=== PATIENT | female | born 1955 | race Caucasian/White ===

== ENCOUNTER → 2016-10-20 | Outpatient (CLI) | payer MEDICARE ==
[~2016-10-20] MED LIST: ACYC-57 PO; ALBU8.5H5 INH; AMLO5TAB2 PO; ASCO500T8 PO; ASPI-496 PO; ASPI325T4 PO; ATEN25TA PO; ATEN50TA41 PO; CEPH-368 PO; CEPH-376 PO; CHOL10002 PO; CHOL10003 PO; CHOL2000 PO; CHOL20003 PO; CLON0.1T12 PO; DIAZ5TAB PO; DIAZ5TAB4 PO; DULO30CA2 PO; DULO60CA7 PO; ENAL20TA68 PO; FISH1CAP PO; FURO20TA3 PO; FURO40TA6 PO; GABA-827 PO; GABA600T2 PO; GLUC1500; HCTZ PO; HYDR2TAB13 PO; HYDR2TAB40 PO; HYDR4TAB16 PO; INSU100C SQ-INSULIN; INSU100V8 SQ; IRBE300T16 PO; LISI-167 PO; LOVA10TA PO; LOVA20TA2 PO; MAGN300C PO; MAGN400T26 PO; METF-86 PO; METF100010 PO; METF10002 PO; METH-356 PO; METH5TAB2 PO; METH750T2 PO; MILK200C2 PO; MULT-516 PO; ONDA4TAB10 PO; OXYC10TA32 PO; OXYC20TA2 PO; OXYC20TA42 PO; POLY17PO5 PO; POT25TAB PO; POTA20TA89 PO; POTASSIUM PO; PRED10TA PO; SENN1TAB7 PO; VALA1000 PO; WARF2TAB7 PO
== END | disposition home or self-care (01) ==
LOC: RAD 15:03
PROVIDERS: ATTEND Family Medicine
DX: N27.0 Small kidney, unilateral (principal); K83.8 Other specified diseases of biliary tract; R94.5 Abnormal results of liver function studies; Z90.49 Acquired absence of other specified parts of digestive tract
CPT/HCPCS: 36415; 76700; 80076; 82105; 82728; 83540; 83550; 83690; 87522

== ENCOUNTER 2018-05-25 11:33 | Inpatient (IN) | payer MEDICARE ==
[~2018-05-25] VITALS: Ht 152.4 cm; Wt 89.4 kg
[~2018-05-25 11:33] MED LIST changes: +AMLO-150 PO; -AMLO5TAB2 PO; +ASPI325T17 PO; -ASPI325T4 PO; -CHOL20003 PO; -GABA600T2 PO; +GABA600T7 PO; -GLUC1500; +GLUC15006; -HYDR2TAB13 PO; +HYDR2TAB29 PO; -HYDR4TAB16 PO; +HYDR4TAB48 PO; +METF-162 PO; -METF-86 PO; -METH-356 PO; +METH10TA2 PO; -OXYC10TA32 PO; +OXYC10TA47 PO; -SENN1TAB7 PO; +SENN1TAB8 PO; -WARF2TAB7 PO; +WARF2TAB99 PO
--- NOTE | 2018-05-25 11:42 | NUR ---
triage: attempted to call pt for triage, no answer
[2018-05-25 12:20] LABS: BASOPHILS # (AUTO) 0.01 x10^3/uL (0-0.1); BASOPHILS % (AUTO) 0 % (0-1); EOSINOPHILS # (AUTO) 0.11 x10^3/uL (0-0.4); EOSINOPHILS % (AUTO) 2 % (1-7); LYMPHOCYTES # (AUTO) 1.54 x10^3/uL (1-3.4); LYMPHOCYTES % (AUTO) 26 % (22-44); MD NO; MEAN CORPUSCULAR HEMOGLOBIN 32.1 pg (27.0-34.8); MEAN CORPUSCULAR HGB CONC 34.2 g/dL (32.4-35.8); MEAN PLATELET VOLUME 7.3 fL (7.4-10.4); MONOCYTES # (AUTO) 0.19 x10^3/uL (0.2-0.8); MONOCYTES % (AUTO) 3 % (2-9); NEUTROPHILS # (AUTO) 4.01 x10^3/uL (1.8-6.8); NEUTROPHILS % (AUTO) 68 % (42-75); PLATELET COUNT 283 x10^3/uL (130-400); RED BLOOD COUNT 3.82 x10^6/uL (3.82-5.3); RED CELL DISTRIBUTION WIDTH 15.2 % (9.6-15.2)
[2018-05-25 12:21] LABS: HCT (SEDRATE) 36.2 % (34.6-47.8)
[2018-05-25] MEDS ORDERED: HYDROmorphone 2 MG/ML, 1ML IVPush PRN ×2 (12:30→19:00)
[2018-05-25 12:31] LABS: ALBUMIN 3.2 g/dL (3.4-5.0); ANION GAP 6 mmol/L (5-15); CALCIUM 9.3 mg/dL (8.5-10.1); CHLORIDE 108 mmol/L (98-107)
--- NOTE | 2018-05-25 12:37 | NUR ---
Pt presents to ED for pain, redness and swelling to L foot and 5th digit x 4 days. Low grade fever at home. CSM intact.
[2018-05-25 12:40] LABS: ALANINE AMINOTRANSFERASE 61 U/L (12-78); ALKALINE PHOSPHATASE 165 U/L (45-117); BILIRUBIN,TOTAL 0.3 mg/dL (0.2-1.0); CREATININE 1.17 mg/dL (0.55-1.02); TOTAL PROTEIN 7.9 g/dL (6.4-8.2)
[2018-05-25] MEDS ORDERED: HYDROmorphone 2 MG/ML, 1ML ONE ×2 (12:50→19:44)
[2018-05-25] MEDS ORDERED: DOXY20TA5 PO (12:58)
[2018-05-25] MEDS ORDERED: METH10TA2 PO (12:58)
[2018-05-25] MEDS ORDERED: ASPI325T17 PO (12:58)
[2018-05-25] MEDS ORDERED: FURO20TA3 PO (13:59)
[2018-05-25] MEDS ORDERED: GABA600T7 PO (13:59)
[2018-05-25] MEDS ORDERED: RIFA150C25 PO (14:06)
[2018-05-25] MEDS ORDERED: IRBE75TA10 PO (14:06)
[2018-05-25] MEDS ORDERED: OXYC10TA6 PO (14:06)
[2018-05-25] MEDS ORDERED: CLON0.1T22 PO (14:06)
--- NOTE | 2018-05-25 14:29 | NUR ---
Pt resting in bed. Pain controlled. Pt NAD. Pt placed on o2, 2L NC
[2018-05-25] MEDS ORDERED: COLCHICINE 0.6 MG TABLET PO ONE ×2 (15:30→17:30)
[2018-05-25] MEDS ORDERED: SODIUM CHLORIDE 0.9% 1,000 ML IV SCH (15:30)
[2018-05-25] MEDS ORDERED: GADOBUTROL 7.5 MMOL/7.5 ML PFS ONE (15:57)
[2018-05-25] MEDS: METHADONE 10 MG TABLET PO SCH (16:41)
[2018-05-25] MEDS: GABAPENTIN 400 MG CAPSULE PO SCH ×2 (16:42→21:26)
[2018-05-25 17:03] VITALS: BP 118/60
[2018-05-25] MEDS: OXYcodone IR 5MG TABLET PO SCH (18:16)
[2018-05-25] MEDS ORDERED: FENTANYL PF 100 MCG/2ML ONE ×2 (18:36→19:44)
[2018-05-25] MEDS ORDERED: FENTANYL PF 250 MCG/5ML ONE (18:49)
[2018-05-25] MEDS ORDERED: BUPIVACAINE/PF 0.25% ONE (18:56)
[2018-05-25] MEDS ORDERED: PROMETHAZINE 25 MG/ML, 1ML IV PRN (19:00)
[2018-05-25] MEDS ORDERED: ONDANSETRON ODT 8 MG PO PRN (19:00)
[2018-05-25] MEDS ORDERED: ONDANSETRON 2MG/ML, 2ML IV PRN (19:00)
[2018-05-25] MEDS ORDERED: MEPERIDINE/PF 25MG/0.5ML IVPush PRN (19:00)
[2018-05-25] MEDS ORDERED: ACETAMINOPHEN 325 MG TABLET PO PRN (19:00)
[2018-05-25] MEDS ORDERED: FENTANYL PF 100 MCG/2ML IV PRN (19:00)
[2018-05-25] MEDS ORDERED: DIAZEPAM 5 MG/ML, 2ML IVPush PRN (19:00)
[2018-05-25] MEDS ORDERED: DEXAMETHASONE 4 MG/ML, 1ML ONE (19:02)
[2018-05-25] MEDS ORDERED: CEFAZOLIN 1,000 MG ONE (19:02)
[2018-05-25] MEDS ORDERED: EPHEDRINE 50 MG/ML, 1ML ONE (19:02)
[2018-05-25] MEDS ORDERED: SUCCINYLCHOLINE 20 MG/ML, 10ML ONE (19:02)
[2018-05-25] MEDS ORDERED: ONDANSETRON 2MG/ML, 2ML ONE (19:02)
[2018-05-25] MEDS ORDERED: PROPOFOL 10 MG/ML, 20ML ONE (19:02)
[2018-05-25] MEDS ORDERED: BUPIVACAINE/PF 0.25% IM ONE (19:23)
[2018-05-25] MEDS ORDERED: OXYcodone 5 MG/5 ML ORAL.SOL UDC ONE (19:44)
[2018-05-25] MEDS: OXYcodone 5 MG/5 ML ORAL.SOL UDC PO PRN (20:13)
[2018-05-25 20:58] VITALS: BP 116/73
[2018-05-25] MEDS: LOVASTATIN 20 MG TABLET PO SCH (21:26)
[2018-05-25] MEDS: ATENOLOL 50 MG TABLET PO SCH (21:27)
[2018-05-25] MEDS: CEFAZOLIN PMX 2GM/50ML 50 ML IVPB SCH (21:42)
[2018-05-26 00:40] VITALS: BP 116/72
[2018-05-26] MEDS: METHADONE 10 MG TABLET PO SCH ×4 (01:50→21:10)
[2018-05-26] MEDS: OXYcodone IR 5MG TABLET PO SCH ×4 (01:51→21:10)
[2018-05-26 05:22] LABS: ANION GAP 7 mmol/L (5-15); CALCIUM 8.3 mg/dL (8.5-10.1); CHLORIDE 104 mmol/L (98-107); CREATININE 1.15 mg/dL (0.55-1.02)
[2018-05-26] MEDS: CEFAZOLIN PMX 2GM/50ML 50 ML IVPB SCH (05:42)
[2018-05-26 06:05] LABS: BASOPHILS % (AUTO) 0 % (0-1); EOSINOPHILS # (AUTO) 0.09 x10^3/uL (0-0.4); EOSINOPHILS % (AUTO) 2 % (1-7); LYMPHOCYTES # (AUTO) 0.38 x10^3/uL (1-3.4); LYMPHOCYTES % (AUTO) 7 % (22-44); MD NO; MEAN CORPUSCULAR HEMOGLOBIN 31.8 pg (27.0-34.8); MEAN CORPUSCULAR HGB CONC 33.7 g/dL (32.4-35.8); MEAN CORPUSCULAR VOLUME 94.2 fL (80-100); MEAN PLATELET VOLUME 7.3 fL (7.4-10.4); MONOCYTES # (AUTO) 0.05 x10^3/uL (0.2-0.8); MONOCYTES % (AUTO) 1 % (2-9); NEUTROPHILS # (AUTO) 4.81 x10^3/uL (1.8-6.8); NEUTROPHILS % (AUTO) 90 % (42-75); PLATELET COUNT 254 x10^3/uL (130-400); RED BLOOD COUNT 3.34 x10^6/uL (3.82-5.3); RED CELL DISTRIBUTION WIDTH 14.9 % (9.6-15.2)
[2018-05-26 07:00] VITALS: BP 107/64
[2018-05-26] MEDS: AMPICILLIN/SULBACTAM 3 GM in SODIUM CHLORIDE 0.9% 100 ML IV SCH ×3 (08:25→20:08)
[2018-05-26] MEDS: INSULIN LISPRO 100 UNITS/ML, PEN SQ-INSULIN SCH ×4 (08:25→21:25)
[2018-05-26] MEDS: DULOXETINE 30 MG CAPSULE.DR PO SCH (08:27)
[2018-05-26] MEDS: GABAPENTIN 400 MG CAPSULE PO SCH ×3 (08:27→21:10)
[2018-05-26] MEDS: COLCHICINE 0.6 MG TABLET PO SCH ×2 (08:27→21:10)
[2018-05-26] MEDS: ATENOLOL 50 MG TABLET PO SCH ×2 (08:27→21:11)
[2018-05-26] MEDS: SODIUM CHLORIDE FLUSH 10ML SYR IVF SCH ×2 (08:28→21:00)
[2018-05-26] MEDS: DOXYCYCLINE 100 MG in DEXTROSE 5% 250 ML IV SCH ×2 (09:37→21:11)
[2018-05-26] MEDS: OXYcodone 5 MG/5 ML ORAL.SOL UDC PO PRN (12:48)
[2018-05-26 13:05] VITALS: BP 99/68
[2018-05-26] MEDS: LOVASTATIN 20 MG TABLET PO SCH (21:11)
[2018-05-26 21:12] VITALS: BP 110/67
[2018-05-27 00:29] VITALS: BP 134/73
[2018-05-27] MEDS: AMPICILLIN/SULBACTAM 3 GM in SODIUM CHLORIDE 0.9% 100 ML IV SCH ×4 (01:57→20:26)
[2018-05-27 06:21] LABS: BASOPHILS % (AUTO) 0 % (0-1); EOSINOPHILS # (AUTO) 0.13 x10^3/uL (0-0.4); EOSINOPHILS % (AUTO) 2 % (1-7); LYMPHOCYTES # (AUTO) 1.74 x10^3/uL (1-3.4); LYMPHOCYTES % (AUTO) 29 % (22-44); MD NO; MEAN CORPUSCULAR HEMOGLOBIN 32.2 pg (27.0-34.8); MEAN CORPUSCULAR HGB CONC 34.1 g/dL (32.4-35.8); MEAN CORPUSCULAR VOLUME 94.5 fL (80-100); MEAN PLATELET VOLUME 6.7 fL (7.4-10.4); MONOCYTES # (AUTO) 0.28 x10^3/uL (0.2-0.8); MONOCYTES % (AUTO) 5 % (2-9); NEUTROPHILS # (AUTO) 3.96 x10^3/uL (1.8-6.8); NEUTROPHILS % (AUTO) 65 % (42-75); PLATELET COUNT 270 x10^3/uL (130-400); RED BLOOD COUNT 3.06 x10^6/uL (3.82-5.3); RED CELL DISTRIBUTION WIDTH 15.5 % (9.6-15.2)
[2018-05-27 06:31] LABS: ANION GAP 7 mmol/L (5-15); CALCIUM 8.1 mg/dL (8.5-10.1); CHLORIDE 107 mmol/L (98-107)
[2018-05-27 06:32] LABS: CREATININE 1.07 mg/dL (0.55-1.02)
[2018-05-27] MEDS: INSULIN LISPRO 100 UNITS/ML, PEN SQ-INSULIN SCH ×4 (07:00→21:00)
[2018-05-27 08:00] VITALS: BP 112/67
[2018-05-27] MEDS: GABAPENTIN 400 MG CAPSULE PO SCH ×3 (08:22→22:46)
[2018-05-27] MEDS: OXYcodone IR 5MG TABLET PO SCH ×3 (08:22→22:46)
[2018-05-27] MEDS: COLCHICINE 0.6 MG TABLET PO SCH ×2 (08:22→20:36)
[2018-05-27] MEDS: METHADONE 10 MG TABLET PO SCH ×3 (08:22→22:46)
[2018-05-27] MEDS: SODIUM CHLORIDE FLUSH 10ML SYR IVF SCH ×2 (08:22→21:00)
[2018-05-27] MEDS: ATENOLOL 50 MG TABLET PO SCH ×2 (08:23→20:38)
[2018-05-27] MEDS: DULOXETINE 30 MG CAPSULE.DR PO SCH (08:23)
[2018-05-27] MEDS: DOXYCYCLINE 100 MG in DEXTROSE 5% 250 ML IV SCH ×2 (11:48→23:51)
[2018-05-27 13:10] VITALS: BP 138/66
[2018-05-27 18:36] VITALS: BP 156/71
[2018-05-27] MEDS: LOVASTATIN 20 MG TABLET PO SCH (20:38)
[2018-05-28] MEDS: AMPICILLIN/SULBACTAM 3 GM in SODIUM CHLORIDE 0.9% 100 ML IV SCH ×4 (02:24→20:29)
[2018-05-28 02:32] VITALS: BP 160/80
[2018-05-28 06:37] LABS: BASOPHILS # (AUTO) 0.01 x10^3/uL (0-0.1); BASOPHILS % (AUTO) 0 % (0-1); EOSINOPHILS # (AUTO) 0.17 x10^3/uL (0-0.4); EOSINOPHILS % (AUTO) 3 % (1-7); LYMPHOCYTES # (AUTO) 1.92 x10^3/uL (1-3.4); LYMPHOCYTES % (AUTO) 36 % (22-44); MD NO; MEAN CORPUSCULAR HEMOGLOBIN 32.2 pg (27.0-34.8); MEAN CORPUSCULAR HGB CONC 34.2 g/dL (32.4-35.8); MEAN CORPUSCULAR VOLUME 94.1 fL (80-100); MEAN PLATELET VOLUME 6.2 fL (7.4-10.4); MONOCYTES # (AUTO) 0.23 x10^3/uL (0.2-0.8); MONOCYTES % (AUTO) 4 % (2-9); NEUTROPHILS # (AUTO) 3.02 x10^3/uL (1.8-6.8); NEUTROPHILS % (AUTO) 57 % (42-75); PLATELET COUNT 296 x10^3/uL (130-400); RED BLOOD COUNT 3.39 x10^6/uL (3.82-5.3); RED CELL DISTRIBUTION WIDTH 14.9 % (9.6-15.2)
[2018-05-28 06:51] LABS: ANION GAP 6 mmol/L (5-15); CALCIUM 8.3 mg/dL (8.5-10.1); CHLORIDE 105 mmol/L (98-107); CREATININE 0.93 mg/dL (0.55-1.02)
[2018-05-28 07:00] VITALS: BP 137/68
[2018-05-28] MEDS ORDERED: PHARMACOKINETIC MONITORING MC PRN (07:00)
[2018-05-28] MEDS: INSULIN LISPRO 100 UNITS/ML, PEN SQ-INSULIN SCH ×4 (07:00→20:39)
[2018-05-28] MEDS ORDERED: PHARMACOKINETIC CONSULTATION MC ONE (07:00)
[2018-05-28] MEDS ORDERED: VANCOMYCIN PER PHARMACY MC PRN (07:00)
[2018-05-28] MEDS ORDERED: VANCOMYCIN 1,600 MG in SODIUM CHLORIDE 0.9% 250 ML IV SCH (08:00)
[2018-05-28] MEDS: ATENOLOL 50 MG TABLET PO SCH ×2 (08:08→20:31)
[2018-05-28] MEDS: GABAPENTIN 400 MG CAPSULE PO SCH ×3 (08:08→20:31)
[2018-05-28] MEDS: OXYcodone IR 5MG TABLET PO SCH ×3 (08:08→20:30)
[2018-05-28] MEDS: DULOXETINE 30 MG CAPSULE.DR PO SCH (08:08)
[2018-05-28] MEDS: METHADONE 10 MG TABLET PO SCH ×3 (08:08→20:31)
[2018-05-28] MEDS: COLCHICINE 0.6 MG TABLET PO SCH ×2 (08:08→20:31)
[2018-05-28] MEDS: SODIUM CHLORIDE FLUSH 10ML SYR IVF SCH ×2 (08:09→20:32)
[2018-05-28 13:23] VITALS: BP 153/81
[2018-05-28 18:33] VITALS: BP 156/87
[2018-05-28] MEDS: LOVASTATIN 20 MG TABLET PO SCH (20:30)
[2018-05-28 23:13] VITALS: BP 131/84
[2018-05-28] MEDS: OXYcodone 5 MG/5 ML ORAL.SOL UDC PO PRN (23:18)
[2018-05-29] MEDS: AMPICILLIN/SULBACTAM 3 GM in SODIUM CHLORIDE 0.9% 100 ML IV SCH ×4 (02:07→20:53)
[2018-05-29 02:17] VITALS: BP 161/81
[2018-05-29 06:40] VITALS: BP 157/84
[2018-05-29] MEDS: INSULIN LISPRO 100 UNITS/ML, PEN SQ-INSULIN SCH ×4 (07:00→21:00)
[2018-05-29] MEDS: COLCHICINE 0.6 MG TABLET PO SCH ×2 (08:21→20:58)
[2018-05-29] MEDS: DULOXETINE 30 MG CAPSULE.DR PO SCH (08:21)
[2018-05-29] MEDS: METHADONE 10 MG TABLET PO SCH ×3 (08:21→20:54)
[2018-05-29] MEDS: GABAPENTIN 400 MG CAPSULE PO SCH ×3 (08:21→20:55)
[2018-05-29] MEDS: OXYcodone IR 5MG TABLET PO SCH ×3 (08:21→20:54)
[2018-05-29] MEDS: ATENOLOL 50 MG TABLET PO SCH ×2 (08:22→20:55)
[2018-05-29] MEDS: SODIUM CHLORIDE FLUSH 10ML SYR IVF SCH ×2 (09:00→20:53)
[2018-05-29] MEDS ORDERED: AMOX1TAB64 PO ×2 (11:18)
[2018-05-29] MEDS: OXYcodone 5 MG/5 ML ORAL.SOL UDC PO PRN (11:33)
[2018-05-29 13:09] VITALS: BP 161/85
[2018-05-29] MEDS ORDERED: ACETAMINOPHEN 325 MG TABLET PO PRN (14:30)
[2018-05-29 19:11] VITALS: BP 152/93
[2018-05-29] MEDS: LOVASTATIN 20 MG TABLET PO SCH (20:54)
[2018-05-30] MEDS: OXYcodone 5 MG/5 ML ORAL.SOL UDC PO PRN ×4 (00:32→23:24)
[2018-05-30 00:41] VITALS: BP 143/73
[2018-05-30] MEDS: AMPICILLIN/SULBACTAM 3 GM in SODIUM CHLORIDE 0.9% 100 ML IV SCH ×4 (02:33→21:17)
[2018-05-30 06:41] VITALS: BP 158/80
[2018-05-30] MEDS: INSULIN LISPRO 100 UNITS/ML, PEN SQ-INSULIN SCH ×4 (07:00→21:00)
[2018-05-30] MEDS: DULOXETINE 30 MG CAPSULE.DR PO SCH (08:21)
[2018-05-30] MEDS: OXYcodone IR 5MG TABLET PO SCH ×3 (08:21→21:18)
[2018-05-30] MEDS: ATENOLOL 50 MG TABLET PO SCH ×2 (08:21→21:18)
[2018-05-30] MEDS: GABAPENTIN 400 MG CAPSULE PO SCH ×3 (08:21→21:18)
[2018-05-30] MEDS: METHADONE 10 MG TABLET PO SCH ×3 (08:22→21:19)
[2018-05-30] MEDS: SODIUM CHLORIDE FLUSH 10ML SYR IVF SCH ×2 (08:26→21:18)
[2018-05-30] MEDS: COLCHICINE 0.6 MG TABLET PO SCH ×2 (08:32→21:00)
[2018-05-30] MEDS: NICOTINE 14MG/24 HR PATCH.TD24 TD SCH ×2 (09:22→16:33)
[2018-05-30] MEDS ORDERED: FENTANYL PF 100 MCG/2ML ONE ×2 (12:24→13:18)
[2018-05-30] MEDS ORDERED: MIDAZOLAM 1 MG/ML, 2ML ONE (12:24)
[2018-05-30] MEDS ORDERED: PROPOFOL 10 MG/ML, 20ML ONE (12:27)
[2018-05-30] MEDS ORDERED: ONDANSETRON 2MG/ML, 2ML ONE (12:27)
[2018-05-30] MEDS ORDERED: ONDANSETRON 2MG/ML, 2ML IV PRN (13:00)
[2018-05-30] MEDS ORDERED: PROMETHAZINE 25 MG SUPP PR PRN (13:00)
[2018-05-30] MEDS ORDERED: EPHEDRINE 50 MG/ML, 1ML IVPush PRN (13:00)
[2018-05-30] MEDS ORDERED: PROMETHAZINE 25 MG/ML, 1ML IV PRN (13:00)
[2018-05-30] MEDS ORDERED: PROMETHAZINE 12.5 MG SUPP PR PRN (13:00)
[2018-05-30] MEDS ORDERED: OXYcodone 5 MG/5 ML ORAL.SOL UDC PO PRN (13:00)
[2018-05-30] MEDS ORDERED: MIDAZOLAM 1 MG/ML, 2ML IV PRN (13:00)
[2018-05-30] MEDS ORDERED: ONDANSETRON ODT 8 MG PO PRN (13:00)
[2018-05-30] MEDS ORDERED: DIPHENHYDRAMINE 50 MG/ML, 1ML IVPush PRN (13:00)
[2018-05-30] MEDS ORDERED: OXYcodone 5 MG/5 ML ORAL.SOL UDC ONE (13:18)
[2018-05-30] MEDS: FENTANYL PF 100 MCG/2ML IV PRN ×3 (13:20→13:50)
[2018-05-30 15:00] VITALS: BP 143/76
[2018-05-30 19:05] VITALS: BP 126/74
[2018-05-30] MEDS: LOVASTATIN 20 MG TABLET PO SCH (21:18)
[2018-05-31] MEDS: AMPICILLIN/SULBACTAM 3 GM in SODIUM CHLORIDE 0.9% 100 ML IV SCH ×4 (02:01→21:07)
[2018-05-31 02:10] VITALS: BP 123/77
[2018-05-31] MEDS: OXYcodone 5 MG/5 ML ORAL.SOL UDC PO PRN ×2 (04:11→13:44)
[2018-05-31] MEDS: INSULIN LISPRO 100 UNITS/ML, PEN SQ-INSULIN SCH ×4 (07:00→21:00)
[2018-05-31 07:31] VITALS: BP 148/82
[2018-05-31] MEDS: SODIUM CHLORIDE FLUSH 10ML SYR IVF SCH ×2 (08:56→21:08)
[2018-05-31] MEDS: DULOXETINE 30 MG CAPSULE.DR PO SCH (08:57)
[2018-05-31] MEDS: ATENOLOL 50 MG TABLET PO SCH ×2 (08:57→21:08)
[2018-05-31] MEDS: GABAPENTIN 400 MG CAPSULE PO SCH ×3 (08:57→21:08)
[2018-05-31] MEDS: COLCHICINE 0.6 MG TABLET PO SCH ×2 (09:00→21:00)
[2018-05-31] MEDS: METHADONE 10 MG TABLET PO SCH ×3 (09:01→21:09)
[2018-05-31] MEDS: OXYcodone IR 5MG TABLET PO SCH ×3 (09:01→21:08)
[2018-05-31 19:25] VITALS: BP 191/91
[2018-05-31] MEDS: LOVASTATIN 20 MG TABLET PO SCH (21:09)
[2018-05-31] MEDS: DOXYCYCLINE 100MG CAP PO SCH (21:37)
[2018-05-31 23:00] VITALS: BP 164/83
[2018-06-01] MEDS: AMPICILLIN/SULBACTAM 3 GM in SODIUM CHLORIDE 0.9% 100 ML IV SCH ×4 (02:36→20:34)
[2018-06-01 02:45] VITALS: BP 143/75
[2018-06-01 06:52] VITALS: BP 164/83
[2018-06-01] MEDS ORDERED: hydrALAzine 20 MG/ML, 1ML IV PRN (07:00)
[2018-06-01] MEDS: INSULIN LISPRO 100 UNITS/ML, PEN SQ-INSULIN SCH ×4 (07:00→20:27)
[2018-06-01 07:46] LABS: HEMOGLOBIN A1C 5.8 % (4.2-6.3)
[2018-06-01] MEDS: METHADONE 10 MG TABLET PO SCH ×3 (08:52→20:35)
[2018-06-01] MEDS: NICOTINE 14MG/24 HR PATCH.TD24 TD SCH (08:52)
[2018-06-01] MEDS: ATENOLOL 50 MG TABLET PO SCH ×2 (08:52→20:34)
[2018-06-01] MEDS: DOXYCYCLINE 100MG CAP PO SCH ×2 (08:53→20:34)
[2018-06-01] MEDS: OXYcodone IR 5MG TABLET PO SCH ×3 (08:53→20:35)
[2018-06-01] MEDS: GABAPENTIN 400 MG CAPSULE PO SCH ×3 (08:53→20:34)
[2018-06-01] MEDS: LISINOPRIL 20 MG TABLET PO SCH ×2 (08:53→20:45)
[2018-06-01] MEDS: FUROSEMIDE 20 MG TABLET PO SCH (08:53)
[2018-06-01] MEDS: COLCHICINE 0.6 MG TABLET PO SCH ×2 (08:54→20:35)
[2018-06-01] MEDS: DULOXETINE 30 MG CAPSULE.DR PO SCH (08:54)
[2018-06-01] MEDS: SODIUM CHLORIDE FLUSH 10ML SYR IVF SCH ×2 (08:54→20:34)
[2018-06-01] MEDS: OXYcodone 5 MG/5 ML ORAL.SOL UDC PO PRN ×2 (11:56→22:01)
[2018-06-01 14:10] VITALS: BP 124/79
[2018-06-01 19:21] VITALS: BP 154/70
[2018-06-01] MEDS: LOVASTATIN 20 MG TABLET PO SCH (20:34)
[2018-06-02] MEDS: AMPICILLIN/SULBACTAM 3 GM in SODIUM CHLORIDE 0.9% 100 ML IV SCH ×4 (01:51→19:59)
[2018-06-02 02:53] VITALS: BP 146/80
[2018-06-02] MEDS: INSULIN LISPRO 100 UNITS/ML, PEN SQ-INSULIN SCH ×4 (07:00→21:00)
[2018-06-02 07:45] LABS: BASOPHILS # (AUTO) 0.02 x10^3/uL (0-0.1); BASOPHILS % (AUTO) 0 % (0-1); EOSINOPHILS % (AUTO) 4 % (1-7); LYMPHOCYTES # (AUTO) 1.88 x10^3/uL (1-3.4); LYMPHOCYTES % (AUTO) 33 % (22-44); MD NO; MEAN CORPUSCULAR HEMOGLOBIN 30.8 pg (27.0-34.8); MEAN CORPUSCULAR VOLUME 93.3 fL (80-100); MEAN PLATELET VOLUME 7.1 fL (7.4-10.4); MONOCYTES # (AUTO) 0.34 x10^3/uL (0.2-0.8); MONOCYTES % (AUTO) 6 % (2-9); NEUTROPHILS # (AUTO) 3.25 x10^3/uL (1.8-6.8); NEUTROPHILS % (AUTO) 57 % (42-75); PLATELET COUNT 290 x10^3/uL (130-400); RED BLOOD COUNT 3.52 x10^6/uL (3.82-5.3); RED CELL DISTRIBUTION WIDTH 15.1 % (9.6-15.2)
[2018-06-02 07:57] LABS: ANION GAP 5 mmol/L (5-15); CALCIUM 8.4 mg/dL (8.5-10.1); CHLORIDE 104 mmol/L (98-107)
[2018-06-02 07:58] LABS: ALANINE AMINOTRANSFERASE 26 U/L (12-78); ALBUMIN 3.1 g/dL (3.4-5.0)
[2018-06-02 08:00] VITALS: BP 175/82
[2018-06-02 08:00] LABS: ALKALINE PHOSPHATASE 172 U/L (45-117); BILIRUBIN,TOTAL 0.2 mg/dL (0.2-1.0); TOTAL PROTEIN 6.9 g/dL (6.4-8.2)
[2018-06-02] MEDS: SODIUM CHLORIDE FLUSH 10ML SYR IVF SCH ×2 (09:00→21:20)
[2018-06-02] MEDS: GABAPENTIN 400 MG CAPSULE PO SCH ×3 (09:15→21:20)
[2018-06-02] MEDS: LISINOPRIL 20 MG TABLET PO SCH ×2 (09:16→21:21)
[2018-06-02] MEDS: DULOXETINE 30 MG CAPSULE.DR PO SCH (09:16)
[2018-06-02] MEDS: COLCHICINE 0.6 MG TABLET PO SCH ×2 (09:16→21:20)
[2018-06-02] MEDS: ATENOLOL 50 MG TABLET PO SCH ×2 (09:16→21:21)
[2018-06-02] MEDS: METHADONE 10 MG TABLET PO SCH ×3 (09:16→21:20)
[2018-06-02] MEDS: NICOTINE 14MG/24 HR PATCH.TD24 TD SCH (09:16)
[2018-06-02] MEDS: DOXYCYCLINE 100MG CAP PO SCH ×2 (09:16→21:21)
[2018-06-02] MEDS: FUROSEMIDE 20 MG TABLET PO SCH (09:16)
[2018-06-02] MEDS: OXYcodone IR 5MG TABLET PO SCH ×3 (09:16→21:21)
[2018-06-02 14:00] VITALS: BP 168/76
[2018-06-02 20:00] VITALS: BP 121/69
[2018-06-02] MEDS: LOVASTATIN 20 MG TABLET PO SCH (21:21)
[2018-06-03 01:28] VITALS: BP 126/76
[2018-06-03] MEDS: AMPICILLIN/SULBACTAM 3 GM in SODIUM CHLORIDE 0.9% 100 ML IV SCH ×4 (02:21→20:16)
[2018-06-03] MEDS: INSULIN LISPRO 100 UNITS/ML, PEN SQ-INSULIN SCH ×4 (07:00→21:00)
[2018-06-03 08:00] VITALS: BP 123/63
[2018-06-03] MEDS: COLCHICINE 0.6 MG TABLET PO SCH ×2 (08:39→21:46)
[2018-06-03] MEDS: GABAPENTIN 400 MG CAPSULE PO SCH ×3 (08:39→21:47)
[2018-06-03] MEDS: OXYcodone IR 5MG TABLET PO SCH ×3 (08:39→21:46)
[2018-06-03] MEDS: DOXYCYCLINE 100MG CAP PO SCH ×2 (08:39→21:46)
[2018-06-03] MEDS: ATENOLOL 50 MG TABLET PO SCH ×2 (08:40→21:46)
[2018-06-03] MEDS: METHADONE 10 MG TABLET PO SCH ×3 (08:40→21:46)
[2018-06-03] MEDS: LISINOPRIL 20 MG TABLET PO SCH ×2 (08:40→21:52)
[2018-06-03] MEDS: DULOXETINE 30 MG CAPSULE.DR PO SCH (08:40)
[2018-06-03] MEDS: NICOTINE 14MG/24 HR PATCH.TD24 TD SCH (08:41)
[2018-06-03] MEDS: SODIUM CHLORIDE FLUSH 10ML SYR IVF SCH ×2 (08:41→21:46)
[2018-06-03] MEDS ORDERED: FUROSEMIDE 40 MG TABLET PO SCH (09:00)
[2018-06-03] MEDS: OXYcodone 5 MG/5 ML ORAL.SOL UDC PO PRN (10:07)
[2018-06-03 10:55] LABS: ALANINE AMINOTRANSFERASE 25 U/L (12-78); ALBUMIN 2.9 g/dL (3.4-5.0); ANION GAP 6 mmol/L (5-15); CALCIUM 8.2 mg/dL (8.5-10.1); CHLORIDE 105 mmol/L (98-107); CREATININE 1.18 mg/dL (0.55-1.02)
[2018-06-03 10:57] LABS: ALKALINE PHOSPHATASE 164 U/L (45-117); BILIRUBIN,TOTAL 0.3 mg/dL (0.2-1.0); TOTAL PROTEIN 6.6 g/dL (6.4-8.2)
[2018-06-03 13:30] VITALS: BP 138/85
[2018-06-03 19:33] VITALS: BP 147/80
[2018-06-03] MEDS: LOVASTATIN 20 MG TABLET PO SCH (21:46)
[2018-06-04 01:13] VITALS: BP 172/85
[2018-06-04] MEDS: AMPICILLIN/SULBACTAM 3 GM in SODIUM CHLORIDE 0.9% 100 ML IV SCH ×4 (01:55→20:11)
[2018-06-04] MEDS: OXYcodone 5 MG/5 ML ORAL.SOL UDC PO PRN (01:55)
[2018-06-04 05:53] LABS: CHLORIDE 107 mmol/L (98-107)
[2018-06-04 06:29] LABS: ALANINE AMINOTRANSFERASE 23 U/L (12-78); ALKALINE PHOSPHATASE 141 U/L (45-117); ANION GAP 6 mmol/L (5-15); BILIRUBIN,TOTAL 0.3 mg/dL (0.2-1.0); CALCIUM 8.5 mg/dL (8.5-10.1); CREATININE 1.08 mg/dL (0.55-1.02); TOTAL PROTEIN 6.5 g/dL (6.4-8.2)
[2018-06-04] MEDS: INSULIN LISPRO 100 UNITS/ML, PEN SQ-INSULIN SCH ×4 (07:00→21:00)
[2018-06-04 07:01] VITALS: BP 158/75
[2018-06-04] MEDS: GABAPENTIN 400 MG CAPSULE PO SCH ×3 (08:02→21:23)
[2018-06-04] MEDS: AMLODIPINE 5 MG TABLET PO SCH (08:03)
[2018-06-04] MEDS: OXYcodone IR 5MG TABLET PO SCH ×3 (08:03→21:23)
[2018-06-04] MEDS: ATENOLOL 50 MG TABLET PO SCH ×2 (08:04→21:23)
[2018-06-04] MEDS: COLCHICINE 0.6 MG TABLET PO SCH ×2 (08:04→21:23)
[2018-06-04] MEDS: METHADONE 10 MG TABLET PO SCH ×3 (08:04→21:22)
[2018-06-04] MEDS: LISINOPRIL 20 MG TABLET PO SCH ×2 (08:04→21:23)
[2018-06-04] MEDS: DOXYCYCLINE 100MG CAP PO SCH ×2 (08:04→21:22)
[2018-06-04] MEDS: DULOXETINE 30 MG CAPSULE.DR PO SCH (08:04)
[2018-06-04] MEDS: NICOTINE 14MG/24 HR PATCH.TD24 TD SCH (08:05)
[2018-06-04] MEDS: HEPARIN 5,000 UNITS/ML, 1ML SQ SCH ×2 (08:10→16:37)
[2018-06-04] MEDS: SODIUM CHLORIDE FLUSH 10ML SYR IVF SCH ×3 (08:32→21:00)
[2018-06-04] MEDS ORDERED: DEXTROSE 50%, 50ML SYRINGE IVPush PRN (10:30)
[2018-06-04] MEDS ORDERED: DEXTROSE 4 GM TAB.CHEW PO PRN (10:30)
[2018-06-04] MEDS ORDERED: GLUCAGON 1 MG IM PRN (10:30)
[2018-06-04 13:37] VITALS: BP 131/73
[2018-06-04 19:53] VITALS: BP 171/79
[2018-06-04] MEDS: LOVASTATIN 20 MG TABLET PO SCH (21:22)
[2018-06-05 01:34] VITALS: BP 152/79
[2018-06-05] MEDS: AMPICILLIN/SULBACTAM 3 GM in SODIUM CHLORIDE 0.9% 100 ML IV SCH ×4 (02:22→21:39)
[2018-06-05] MEDS: OXYcodone 5 MG/5 ML ORAL.SOL UDC PO PRN (02:39)
[2018-06-05] MEDS: HEPARIN 5,000 UNITS/ML, 1ML SQ SCH ×3 (05:08→21:40)
[2018-06-05 06:21] LABS: HCT (SEDRATE) 34.1 % (34.6-47.8)
[2018-06-05 06:23] LABS: BASOPHILS # (AUTO) 0.03 x10^3/uL (0-0.1); BASOPHILS % (AUTO) 1 % (0-1); EOSINOPHILS # (AUTO) 0.14 x10^3/uL (0-0.4); EOSINOPHILS % (AUTO) 3 % (1-7); LYMPHOCYTES # (AUTO) 1.82 x10^3/uL (1-3.4); LYMPHOCYTES % (AUTO) 35 % (22-44); MD NO; MEAN CORPUSCULAR HEMOGLOBIN 31.4 pg (27.0-34.8); MEAN CORPUSCULAR HGB CONC 33.4 g/dL (32.4-35.8); MEAN CORPUSCULAR VOLUME 93.8 fL (80-100); MEAN PLATELET VOLUME 7.9 fL (7.4-10.4); MONOCYTES # (AUTO) 0.26 x10^3/uL (0.2-0.8); MONOCYTES % (AUTO) 5 % (2-9); NEUTROPHILS # (AUTO) 2.95 x10^3/uL (1.8-6.8); NEUTROPHILS % (AUTO) 57 % (42-75); PLATELET COUNT 250 x10^3/uL (130-400); RED BLOOD COUNT 3.61 x10^6/uL (3.82-5.3); RED CELL DISTRIBUTION WIDTH 15.3 % (9.6-15.2)
[2018-06-05 06:35] LABS: CHLORIDE 105 mmol/L (98-107)
[2018-06-05 06:53] LABS: ALANINE AMINOTRANSFERASE 24 U/L (12-78); ALBUMIN 3.3 g/dL (3.4-5.0); ALKALINE PHOSPHATASE 142 U/L (45-117); ANION GAP 7 mmol/L (5-15); BILIRUBIN,TOTAL 0.5 mg/dL (0.2-1.0); C-REACTIVE PROTEIN, QUANT 0.95 mg/dL (0.02-0.49); CALCIUM 9.4 mg/dL (8.5-10.1); CREATININE 1.03 mg/dL (0.55-1.02); TOTAL PROTEIN 7.3 g/dL (6.4-8.2)
[2018-06-05] MEDS: INSULIN LISPRO 100 UNITS/ML, PEN SQ-INSULIN SCH ×4 (07:00→19:54)
[2018-06-05 07:08] VITALS: BP 144/83
[2018-06-05] MEDS: GABAPENTIN 400 MG CAPSULE PO SCH ×3 (08:51→21:40)
[2018-06-05] MEDS: DULOXETINE 30 MG CAPSULE.DR PO SCH (08:52)
[2018-06-05] MEDS: METHADONE 10 MG TABLET PO SCH ×3 (08:52→21:41)
[2018-06-05] MEDS: COLCHICINE 0.6 MG TABLET PO SCH ×2 (08:52→21:41)
[2018-06-05] MEDS: DOXYCYCLINE 100MG CAP PO SCH ×2 (08:52→21:40)
[2018-06-05] MEDS: AMLODIPINE 5 MG TABLET PO SCH (08:52)
[2018-06-05] MEDS: ATENOLOL 50 MG TABLET PO SCH ×2 (08:53→21:40)
[2018-06-05] MEDS: OXYcodone IR 5MG TABLET PO SCH ×3 (08:53→21:41)
[2018-06-05] MEDS: LISINOPRIL 20 MG TABLET PO SCH ×2 (08:54→21:41)
[2018-06-05] MEDS: NICOTINE 14MG/24 HR PATCH.TD24 TD SCH (08:54)
[2018-06-05] MEDS: SODIUM CHLORIDE FLUSH 10ML SYR IVF SCH ×4 (09:00→21:00)
[2018-06-05 13:17] VITALS: BP 129/56
[2018-06-05 19:20] VITALS: BP 154/80
[2018-06-05] MEDS: LOVASTATIN 20 MG TABLET PO SCH (21:41)
[2018-06-06 01:27] VITALS: BP 148/84
[2018-06-06] MEDS: AMPICILLIN/SULBACTAM 3 GM in SODIUM CHLORIDE 0.9% 100 ML IV SCH ×2 (04:37→11:38)
[2018-06-06] MEDS: HEPARIN 5,000 UNITS/ML, 1ML SQ SCH ×2 (05:23→13:00)
[2018-06-06] MEDS: INSULIN LISPRO 100 UNITS/ML, PEN SQ-INSULIN SCH ×3 (07:00→16:00)
[2018-06-06 08:47] VITALS: BP 141/83
[2018-06-06] MEDS: SODIUM CHLORIDE FLUSH 10ML SYR IVF SCH ×2 (08:52→08:53)
[2018-06-06] MEDS: GABAPENTIN 400 MG CAPSULE PO SCH ×2 (08:54→17:14)
[2018-06-06] MEDS: DULOXETINE 30 MG CAPSULE.DR PO SCH (08:54)
[2018-06-06] MEDS: METHADONE 10 MG TABLET PO SCH ×2 (08:54→17:14)
[2018-06-06] MEDS: COLCHICINE 0.6 MG TABLET PO SCH (08:54)
[2018-06-06] MEDS: LISINOPRIL 20 MG TABLET PO SCH (08:54)
[2018-06-06] MEDS: DOXYCYCLINE 100MG CAP PO SCH (08:54)
[2018-06-06] MEDS: AMLODIPINE 5 MG TABLET PO SCH (08:54)
[2018-06-06] MEDS: ATENOLOL 50 MG TABLET PO SCH (08:55)
[2018-06-06] MEDS: OXYcodone IR 5MG TABLET PO SCH ×2 (08:55→17:14)
[2018-06-06] MEDS: NICOTINE 14MG/24 HR PATCH.TD24 TD SCH (11:38)
[2018-06-06 12:08] VITALS: BP 119/78
[2018-06-06] MEDS ORDERED: AMLO-150 PO (16:43)
[2018-06-06] MEDS ORDERED: CLON0.2T10 PO ×2 (16:43)
[2018-06-06] MEDS ORDERED: LISI-170 PO (16:43)
[2018-06-06] MEDS ORDERED: AMOX1TAB61 PO (16:45)
[2018-06-06] MEDS ORDERED: LINEZOLID 600 MG TABLET PO SCH (21:00)
== END 2018-06-06 18:48 | DRG 616 ==
LOC: ED 13:07 → EDIP 14:18 → 3NE 16:14
PROVIDERS: ADMIT Internal Medicine; ATTEND Internal Medicine
PROC: 0Y6Y0Z0 Detachment at Left 5th Toe, Complete, Open Approach (ICD-10-PCS; principal; 2018-05-25 19:00)
PROC: 0QBP0ZZ Excision of Left Metatarsal, Open Approach (ICD-10-PCS; 2018-05-30)
PROC: 02HV33Z Insertion of Infusion Device into Superior Vena Cava, Percutaneous Approach (ICD-10-PCS; 2018-06-02)
PROC: B5181ZA Fluoroscopy of Superior Vena Cava using Low Osmolar Contrast, Guidance (ICD-10-PCS; 2018-06-02)
PROC: B548ZZA Ultrasonography of Superior Vena Cava, Guidance (ICD-10-PCS; 2018-06-02)
DX: E11.628 Type 2 diabetes mellitus with other skin complications (principal); E43 Unspecified severe protein-calorie malnutrition; F11.20 Opioid dependence, uncomplicated; M86.172 Other acute osteomyelitis, left ankle and foot; G82.20 Paraplegia, unspecified; L02.612 Cutaneous abscess of left foot; L03.116 Cellulitis of left lower limb; M00.9 Pyogenic arthritis, unspecified; M46.26 Osteomyelitis of vertebra, lumbar region; N12 Tubulo-interstitial nephritis, not specified as acute or chronic; N17.0 Acute kidney failure with tubular necrosis; B18.2 Chronic viral hepatitis C; E11.65 Type 2 diabetes mellitus with hyperglycemia; E11.69 Type 2 diabetes mellitus with other specified complication; E66.01 Morbid (severe) obesity due to excess calories; Z68.38 Body mass index [BMI] 38.0-38.9, adult; F12.90 Cannabis use, unspecified, uncomplicated; F17.210 Nicotine dependence, cigarettes, uncomplicated; G71.00 Muscular dystrophy, unspecified; G89.29 Other chronic pain; I10 Essential (primary) hypertension; J45.909 Unspecified asthma, uncomplicated; K21.9 Gastro-esophageal reflux disease without esophagitis; M10.072 Idiopathic gout, left ankle and foot; M19.90 Unspecified osteoarthritis, unspecified site; M1A.9XX0 Chronic gout, unspecified, without tophus (tophi); M1A.9XX1 Chronic gout, unspecified, with tophus (tophi); M40.209 Unspecified kyphosis, site unspecified; Z66 Do not resuscitate; Z79.2 Long term (current) use of antibiotics; Z82.49 Family history of ischemic heart disease and other diseases of the circulatory system; Z82.5 Family history of asthma and other chronic lower respiratory diseases; Z83.1 Family history of other infectious and parasitic diseases; Z86.72 Personal history of thrombophlebitis; Z87.442 Personal history of urinary calculi; Z89.422 Acquired absence of other left toe(s); Z90.49 Acquired absence of other specified parts of digestive tract
CPT/HCPCS: 36415; 36569; 36573; 76937; 77001; 80048; 80053; 82962; 83036; 83605; 83735; 84100; 84550; 85025; 85651; 86140; 87040; 87070; 87075; 87077; 87176; 87186; 87205; 87522; 88305; 88311; 96374; 99285; A9585; G0378; J0295; J0690; J1100; J1170; J1644; J2250; J2405; J2704; J3010; J3370; J3490; J7060; C1751; J0330; J1815; J7030; J7050

== ENCOUNTER → 2018-06-09 | Outpatient (CLI) | payer MEDICARE ==
[~2018-06-09] MED LIST changes: +AMOX1TAB61 PO; +AMOX1TAB64 PO; +CLON0.1T22 PO; +CLON0.2T10 PO; +DOXY20TA5 PO; +GABA600T2 PO; -GABA600T7 PO; +IRBE75TA10 PO; +LISI-170 PO; +OXYC10TA6 PO; +RIFA150C25 PO
== END | disposition home or self-care (01) ==
LOC: WOUND 12:59
PROVIDERS: ATTEND Internal Medicine
DX: T87.89 Other complications of amputation stump (principal); E11.621 Type 2 diabetes mellitus with foot ulcer; L97.521 Non-pressure chronic ulcer of other part of left foot limited to breakdown of skin; E11.65 Type 2 diabetes mellitus with hyperglycemia; E11.69 Type 2 diabetes mellitus with other specified complication; M46.26 Osteomyelitis of vertebra, lumbar region; M86.171 Other acute osteomyelitis, right ankle and foot; J45.40 Moderate persistent asthma, uncomplicated; F17.210 Nicotine dependence, cigarettes, uncomplicated; F12.10 Cannabis abuse, uncomplicated; G89.29 Other chronic pain; M54.9 Dorsalgia, unspecified; M1A.9XX0 Chronic gout, unspecified, without tophus (tophi); I10 Essential (primary) hypertension; G82.20 Paraplegia, unspecified; F11.21 Opioid dependence, in remission; M00.9 Pyogenic arthritis, unspecified; K21.9 Gastro-esophageal reflux disease without esophagitis; E66.01 Morbid (severe) obesity due to excess calories; Z68.30 Body mass index [BMI] 30.0-30.9, adult; Z79.4 Long term (current) use of insulin; Z90.49 Acquired absence of other specified parts of digestive tract; Z86.19 Personal history of other infectious and parasitic diseases; Y83.5 Amputation of limb(s) as the cause of abnormal reaction of the patient, or of later complication, without mention of misadventure at the time of the procedure
CPT/HCPCS: 97605; G0463

== ENCOUNTER 2018-06-16 15:00 | Outpatient (CLI) | payer MEDICARE ==
[~2018-06-16 15:00] MED LIST changes: -GABA600T2 PO; +GABA600T7 PO
== END 2018-06-16 23:59 | disposition home or self-care (01) ==
LOC: WOUND 15:00
PROVIDERS: ATTEND Family Medicine
DX: T87.89 Other complications of amputation stump (principal); E11.621 Type 2 diabetes mellitus with foot ulcer; L97.522 Non-pressure chronic ulcer of other part of left foot with fat layer exposed; E11.69 Type 2 diabetes mellitus with other specified complication; M46.26 Osteomyelitis of vertebra, lumbar region; M86.171 Other acute osteomyelitis, right ankle and foot; E11.65 Type 2 diabetes mellitus with hyperglycemia; I10 Essential (primary) hypertension; G89.29 Other chronic pain; M54.9 Dorsalgia, unspecified; M00.9 Pyogenic arthritis, unspecified; M10.09 Idiopathic gout, multiple sites; J45.40 Moderate persistent asthma, uncomplicated; F17.210 Nicotine dependence, cigarettes, uncomplicated; F12.10 Cannabis abuse, uncomplicated; K21.9 Gastro-esophageal reflux disease without esophagitis; F11.20 Opioid dependence, uncomplicated; E66.01 Morbid (severe) obesity due to excess calories; Z68.30 Body mass index [BMI] 30.0-30.9, adult; Z79.4 Long term (current) use of insulin; Z90.49 Acquired absence of other specified parts of digestive tract; Y83.5 Amputation of limb(s) as the cause of abnormal reaction of the patient, or of later complication, without mention of misadventure at the time of the procedure
CPT/HCPCS: 11042; 97605

== ENCOUNTER → 2018-06-23 | Outpatient (CLI) | payer MEDICARE | END | disposition home or self-care (01) | LOC: WOUND 14:26 | PROVIDERS: ATTEND Family Medicine | DX: T87.89 Other complications of amputation stump (principal); E11.65 Type 2 diabetes mellitus with hyperglycemia; E11.69 Type 2 diabetes mellitus with other specified complication; M86.171 Other acute osteomyelitis, right ankle and foot; M46.26 Osteomyelitis of vertebra, lumbar region; G89.29 Other chronic pain; M54.9 Dorsalgia, unspecified; J45.40 Moderate persistent asthma, uncomplicated; M00.9 Pyogenic arthritis, unspecified; I10 Essential (primary) hypertension; M10.09 Idiopathic gout, multiple sites; F17.210 Nicotine dependence, cigarettes, uncomplicated; M19.90 Unspecified osteoarthritis, unspecified site; K21.9 Gastro-esophageal reflux disease without esophagitis; M10.00 Idiopathic gout, unspecified site; M40.209 Unspecified kyphosis, site unspecified; F11.20 Opioid dependence, uncomplicated; E66.01 Morbid (severe) obesity due to excess calories; Z68.30 Body mass index [BMI] 30.0-30.9, adult; Z79.4 Long term (current) use of insulin; Z90.49 Acquired absence of other specified parts of digestive tract; Y83.5 Amputation of limb(s) as the cause of abnormal reaction of the patient, or of later complication, without mention of misadventure at the time of the procedure | CPT/HCPCS: 97597 ==

== ENCOUNTER → 2018-06-30 | Outpatient (CLI) | payer MEDICARE | END | disposition home or self-care (01) | LOC: WOUND 08:48 | PROVIDERS: ATTEND Family Medicine | DX: T81.31XD Disruption of external operation (surgical) wound, not elsewhere classified, subsequent encounter (principal); E11.65 Type 2 diabetes mellitus with hyperglycemia; E11.69 Type 2 diabetes mellitus with other specified complication; M86.171 Other acute osteomyelitis, right ankle and foot; M86.172 Other acute osteomyelitis, left ankle and foot; M46.22 Osteomyelitis of vertebra, cervical region; I10 Essential (primary) hypertension; M00.9 Pyogenic arthritis, unspecified; G89.29 Other chronic pain; M54.9 Dorsalgia, unspecified; M10.00 Idiopathic gout, unspecified site; J45.40 Moderate persistent asthma, uncomplicated; F11.20 Opioid dependence, uncomplicated; M40.209 Unspecified kyphosis, site unspecified; K21.9 Gastro-esophageal reflux disease without esophagitis; F17.210 Nicotine dependence, cigarettes, uncomplicated; E66.01 Morbid (severe) obesity due to excess calories; Z68.30 Body mass index [BMI] 30.0-30.9, adult; Z79.4 Long term (current) use of insulin; Z89.422 Acquired absence of other left toe(s); Z90.49 Acquired absence of other specified parts of digestive tract; Y83.8 Other surgical procedures as the cause of abnormal reaction of the patient, or of later complication, without mention of misadventure at the time of the procedure | CPT/HCPCS: 97597 ==

== ENCOUNTER → 2018-07-07 | Outpatient (CLI) | payer MEDICARE | END | disposition home or self-care (01) | LOC: WOUND 09:04 | PROVIDERS: ATTEND Family Medicine | DX: T87.89 Other complications of amputation stump (principal); E11.621 Type 2 diabetes mellitus with foot ulcer; L97.521 Non-pressure chronic ulcer of other part of left foot limited to breakdown of skin; E11.69 Type 2 diabetes mellitus with other specified complication; M46.22 Osteomyelitis of vertebra, cervical region; M86.171 Other acute osteomyelitis, right ankle and foot; M86.172 Other acute osteomyelitis, left ankle and foot; M46.26 Osteomyelitis of vertebra, lumbar region; E11.65 Type 2 diabetes mellitus with hyperglycemia; M00.9 Pyogenic arthritis, unspecified; M10.09 Idiopathic gout, multiple sites; I10 Essential (primary) hypertension; J45.40 Moderate persistent asthma, uncomplicated; G89.29 Other chronic pain; M54.9 Dorsalgia, unspecified; K21.9 Gastro-esophageal reflux disease without esophagitis; F17.210 Nicotine dependence, cigarettes, uncomplicated; F11.20 Opioid dependence, uncomplicated; M40.209 Unspecified kyphosis, site unspecified; M10.072 Idiopathic gout, left ankle and foot; E66.01 Morbid (severe) obesity due to excess calories; Z68.30 Body mass index [BMI] 30.0-30.9, adult; Z79.4 Long term (current) use of insulin; Z86.19 Personal history of other infectious and parasitic diseases; Z90.49 Acquired absence of other specified parts of digestive tract; Y83.5 Amputation of limb(s) as the cause of abnormal reaction of the patient, or of later complication, without mention of misadventure at the time of the procedure | CPT/HCPCS: 97597 ==

== ENCOUNTER → 2018-07-21 | Outpatient (CLI) | payer MEDICARE | END | disposition home or self-care (01) | LOC: WOUND 15:17 | PROVIDERS: ATTEND Family Medicine | DX: T87.89 Other complications of amputation stump (principal); E11.65 Type 2 diabetes mellitus with hyperglycemia; E11.69 Type 2 diabetes mellitus with other specified complication; M86.171 Other acute osteomyelitis, right ankle and foot; M86.172 Other acute osteomyelitis, left ankle and foot; M46.22 Osteomyelitis of vertebra, cervical region; M46.26 Osteomyelitis of vertebra, lumbar region; M00.869 Arthritis due to other bacteria, unspecified knee; M40.209 Unspecified kyphosis, site unspecified; G82.20 Paraplegia, unspecified; M10.09 Idiopathic gout, multiple sites; F12.10 Cannabis abuse, uncomplicated; M10.9 Gout, unspecified; G89.29 Other chronic pain; M54.9 Dorsalgia, unspecified; I10 Essential (primary) hypertension; F11.20 Opioid dependence, uncomplicated; K21.9 Gastro-esophageal reflux disease without esophagitis; J45.40 Moderate persistent asthma, uncomplicated; E66.01 Morbid (severe) obesity due to excess calories; F17.290 Nicotine dependence, other tobacco product, uncomplicated; Z79.4 Long term (current) use of insulin; Z86.19 Personal history of other infectious and parasitic diseases; Z90.49 Acquired absence of other specified parts of digestive tract; Y83.5 Amputation of limb(s) as the cause of abnormal reaction of the patient, or of later complication, without mention of misadventure at the time of the procedure | CPT/HCPCS: 97597 ==

== ENCOUNTER → 2018-08-22 | Outpatient (CLI) | payer MEDICARE ==
[~2018-08-22] MED LIST changes: +SENN-177 PO; -SENN1TAB8 PO
== END | disposition home or self-care (01) ==
LOC: WOUND 13:57
PROVIDERS: ATTEND Nurse Practitioner Family
DX: T87.89 Other complications of amputation stump (principal); E11.65 Type 2 diabetes mellitus with hyperglycemia; E11.69 Type 2 diabetes mellitus with other specified complication; M86.171 Other acute osteomyelitis, right ankle and foot; M86.172 Other acute osteomyelitis, left ankle and foot; M46.22 Osteomyelitis of vertebra, cervical region; M46.26 Osteomyelitis of vertebra, lumbar region; M00.869 Arthritis due to other bacteria, unspecified knee; M40.209 Unspecified kyphosis, site unspecified; G82.20 Paraplegia, unspecified; M10.09 Idiopathic gout, multiple sites; F12.10 Cannabis abuse, uncomplicated; M10.9 Gout, unspecified; G89.29 Other chronic pain; M54.9 Dorsalgia, unspecified; I10 Essential (primary) hypertension; F11.20 Opioid dependence, uncomplicated; K21.9 Gastro-esophageal reflux disease without esophagitis; J45.40 Moderate persistent asthma, uncomplicated; E66.01 Morbid (severe) obesity due to excess calories; F17.290 Nicotine dependence, other tobacco product, uncomplicated; Z79.4 Long term (current) use of insulin; Z86.19 Personal history of other infectious and parasitic diseases; Z90.49 Acquired absence of other specified parts of digestive tract; Y83.5 Amputation of limb(s) as the cause of abnormal reaction of the patient, or of later complication, without mention of misadventure at the time of the procedure
CPT/HCPCS: 97597

== ENCOUNTER → 2018-09-05 | Outpatient (CLI) | payer MEDICARE | END | disposition home or self-care (01) | LOC: WOUND 08:41 | PROVIDERS: ATTEND Nurse Practitioner Family | DX: T87.89 Other complications of amputation stump (principal); E11.65 Type 2 diabetes mellitus with hyperglycemia; E11.69 Type 2 diabetes mellitus with other specified complication; M86.171 Other acute osteomyelitis, right ankle and foot; M86.172 Other acute osteomyelitis, left ankle and foot; M46.22 Osteomyelitis of vertebra, cervical region; M46.26 Osteomyelitis of vertebra, lumbar region; M00.869 Arthritis due to other bacteria, unspecified knee; M40.209 Unspecified kyphosis, site unspecified; G82.20 Paraplegia, unspecified; M10.09 Idiopathic gout, multiple sites; F12.10 Cannabis abuse, uncomplicated; M10.9 Gout, unspecified; G89.29 Other chronic pain; M54.9 Dorsalgia, unspecified; I10 Essential (primary) hypertension; F11.20 Opioid dependence, uncomplicated; K21.9 Gastro-esophageal reflux disease without esophagitis; J45.40 Moderate persistent asthma, uncomplicated; E66.01 Morbid (severe) obesity due to excess calories; F17.290 Nicotine dependence, other tobacco product, uncomplicated; Z79.4 Long term (current) use of insulin; Z86.19 Personal history of other infectious and parasitic diseases; Z90.49 Acquired absence of other specified parts of digestive tract; Y83.5 Amputation of limb(s) as the cause of abnormal reaction of the patient, or of later complication, without mention of misadventure at the time of the procedure | CPT/HCPCS: 97597 ==

== ENCOUNTER 2020-04-18 08:04 | Day surgery (SDC) | payer MEDICARE ==
[~2020-04-18] VITALS: Ht 154.9 cm; Wt 91.6 kg
[~2020-04-18 08:04] MED LIST changes: -IRBE300T16 PO; +IRBE300T8 PO; -IRBE75TA10 PO; +IRBE75TA6 PO; -VALA1000 PO; +VALA10007 PO
[2020-04-18] MEDS ORDERED: CHLORHEXIDINE 15 ML UDC MM STA (08:25)
[2020-04-18 08:26] VITALS: BP 149/90
[2020-04-18] MEDS ORDERED: MEPERIDINE/PF 25MG/0.5ML IVPush PRN (08:30)
[2020-04-18] MEDS ORDERED: FENTANYL PF 100 MCG/2ML IV PRN (08:30)
[2020-04-18] MEDS ORDERED: HYDROmorphone 1 MG/ML, 1ML INJ IVPush PRN (08:30)
[2020-04-18] MEDS ORDERED: OXYcodone 5 MG/5 ML ORAL.SOL UDC PO PRN (08:30)
[2020-04-18] MEDS ORDERED: PLEASE ENTER HEIGHT AND WEIGHT MC SCH (08:30)
[2020-04-18] MEDS ORDERED: PROMETHAZINE 25 MG/ML, 1ML IVPush PRN (08:30)
[2020-04-18] MEDS ORDERED: HYDROcodone/APAP 7.5-325MG/15ML UDC PO PRN (08:30)
[2020-04-18] MEDS ORDERED: KETOROLAC 30 MG/1 ML IVPush PRN (08:30)
[2020-04-18] MEDS ORDERED: FENTANYL PF 100 MCG/2ML ONE (08:56)
[2020-04-18] MEDS ORDERED: MIDAZOLAM 1 MG/ML, 2ML ONE (08:56)
[2020-04-18] MEDS ORDERED: PROPOFOL 10 MG/ML, 20ML ONE (16:44)
[2020-04-18] MEDS ORDERED: EPHEDRINE 50 MG/ML, 1ML ONE (16:44)
[2020-04-18] MEDS ORDERED: CEFAZOLIN 1,000 MG ONE (16:44)
[2020-04-18] MEDS ORDERED: ONDANSETRON 2MG/ML, 2ML ONE (16:44)
[2020-04-18] MEDS ORDERED: VASOPRESSIN 20 UNIT/ML, 1ML ONE (16:44)
[2020-04-18] MEDS ORDERED: DEXAMETHASONE 4 MG/ML, 1ML ONE (16:44)
== END 2020-04-18 13:45 | disposition home or self-care (01) ==
LOC: OUT 08:04
PROVIDERS: ATTEND Orthopaedic Surgery
DX: M1A.00X1 Idiopathic chronic gout, unspecified site, with tophus (tophi) (principal); M20.41 Other hammer toe(s) (acquired), right foot; J45.909 Unspecified asthma, uncomplicated; E11.9 Type 2 diabetes mellitus without complications; I10 Essential (primary) hypertension; M81.0 Age-related osteoporosis without current pathological fracture; F17.210 Nicotine dependence, cigarettes, uncomplicated; Z79.899 Other long term (current) drug therapy; Z79.4 Long term (current) use of insulin; Z79.82 Long term (current) use of aspirin; Z88.5 Allergy status to narcotic agent; Z98.890 Other specified postprocedural states; Z20.828 Contact with and (suspected) exposure to other viral communicable diseases
CPT/HCPCS: 20900; 27620; 28285; 28750; 64445; 64447; 73660; 82962; 87635; C1713; C1762; J0690; J1100; J2250; J2405; J2704; 76000; J3010

== ENCOUNTER 2020-10-28 07:01 | Emergency (ER) | payer MEDICARE, OTHER ==
[~2020-10-28] VITALS: Ht 149.9 cm; Wt 86.3 kg
[~2020-10-28 07:01] MED LIST changes: +METH-640 PO; -METH750T2 PO
--- NOTE | 2020-10-28 07:46 | NUR ---
application integration specialist: pt from lobby to room 19
--- NOTE | 2020-10-28 08:50 | NUR ---
PT STATES 2 DAYS AGO WAS TRYING TO GET INTO WHEELCHAIR AND HEARD A POP IN THE RIGHT KNEE AND FLIPPED OVER THE CHAIR AND FOOT STOOL AND HURT R ELBOW AND SHOULDER. 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
[2020-10-28 08:55] VITALS: BP 152/83
--- NOTE | 2020-10-28 10:55 | NUR ---
FRIEND CALLED TO LEADER WRITER PATIENT.
== END 2020-10-28 11:26 | disposition home or self-care (01) ==
LOC: ED 09:14
DX: S40.011A Contusion of right shoulder, initial encounter (principal); S50.01XA Contusion of right elbow, initial encounter; S90.31XA Contusion of right foot, initial encounter; M54.2 Cervicalgia; I10 Essential (primary) hypertension; E11.9 Type 2 diabetes mellitus without complications; J45.909 Unspecified asthma, uncomplicated; K21.9 Gastro-esophageal reflux disease without esophagitis; F17.200 Nicotine dependence, unspecified, uncomplicated; Z90.49 Acquired absence of other specified parts of digestive tract; W18.30XA Fall on same level, unspecified, initial encounter; Y93.01 Activity, walking, marching and hiking; Y92.009 Unspecified place in unspecified non-institutional (private) residence as the place of occurrence of the external cause; Y99.8 Other external cause status
CPT/HCPCS: 99283